=== PATIENT | female | born 1945 | race Caucasian/White ===

== ENCOUNTER 2022-04-14 17:01 | Emergency (ER) | payer MEDICARE, SELFPAY ==
--- NOTE | ~2022-04-14 | CT_ITS ---
EXAMINATION: CT abdomen pelvis w con DATE: 04/14/2022 19:42 INDICATION: abdominal pain TECHNIQUE: Computed tomography (CT) of the abdomen and pelvis was performed with 100 mL Omnipaque-300 intravenous contrast. Automated exposure control and iterative reconstruction technique were employe d. The dose-length product was 592.21 mGy-cm. COMPARISON: None FINDINGS: Lower thorax: Mild peripheral interstitial/senescent changes and bibasilar atelectasis. Fatty infiltr ation of the intra-atrial septum. Liver: Granulomas calcifications. Biliary/Gallbladder: Cholelithiasis without CT evidence of cholecystitis. No bile duct dilation. Pancreas: No mass or duct dilation. Spleen: Normal. Adrenals:Bilateral adrenal adenomas. Kidneys: Bilateral cortical thinning and scarring. Bilateral perinephric stranding. Right renal cysts and numerous bilateral hypodensities that are too small to characterize but also likely represent cy sts. No hydronephrosis or nephrolithiasis. GI tract: Distal esophageal and gastric wall edema. No small or large bowel dilation. Extensive diver ticulosis, without evidence of diverticulitis. Loss of colonic haustrations in the transverse colon, also possibly in the descending and sigmoid obscured by the diverticuli. Normal appendix. Mesentery/Peritoneum: No ascites, mass, or free air. Retroperitoneum: No mass. Minimal infrarenal aneurysmal dilation. Atherosclerotic abdominal aortic an d arterial calcifications. Pelvis: Pelvic organs are within normal limits. Soft Tissues: Soft tissues and body wall unremarkable. Bones: No acute osseous finding. IMPRESSION: Possible esophagitis/gastritis. No other acute abdominopelvic process detected. Chronic changes in th e colon possibly related to inflammatory bowel disease. Other chronic and incidental findings describ ed above. Reviewed, dictated and finalized at location K. IMPRESSION: Possible esophagitis/gastritis. No other acute abdominopelvic process detected. Chronic changes in the colon possibly related to inflammatory bowel disease. O ther chronic and incidental findings described above.
--- NOTE | ~2022-04-14 | XR_ITS ---
EXAMINATION: XR chest 1V portable Exam Date/Time: 04/14/2022 18:40 CDT CLINICAL HISTORY: abdominal pain/shortness of breath Comparison: None available. RESULT: Lines, tubes, and devices: None. Lungs and pleura: Senescent changes, otherwise clear. Cardiomediastinal silhouette: Unremarkable cardiomediastinal silhouette. Other: No acute osseous or upper abdominal finding. IMPRESSION: No acute cardiopulmonary process Reviewed, dictated and finalized at location K.
[2022-04-14 17:25] VITALS: BP 162/83; PULSE 86; RESP 20; TEMP 36.7; O2SAT 94
--- NOTE | 2022-04-14 17:38 | ECG_ITS ---
Measurements Intervals Supply Rate: 78 P: [place]: 0 QRS: 41 QRSD: 84 T: 34 QT: 395 QTc: 451 Interpretive Statements SINUS RHYTHM VENTRICULAR PREMATURE COMPLEXES INCOMPLETE RIGHT BUNDLE BRANCH BLOCK LOW QRS VOLTAGE IN PRECORDIAL LEADS BORDERLINE ST-T WAVE ABNORMALITY- INFERIOR LEADS BASELINE ARTIFACT- I, II, III, AVR, AVL, AVF BORDERLINE ECG Electronically Signed On 04-14-2022 20:45:23 CDT by Tucker Perez D.O.
[2022-04-14 18:01] LABS: Basophils Absolute Auto 0.02 K/mm3 (0.00-0.10); Basophils Percent Auto 0.2 % (0.0-1.0); Hematocrit 41.2 % (35.0-42.0); Hemoglobin 13.6 g/dL (11.7-13.8); Immature Granulocyte Absolute 0.05 K/mm3 (0.00-0.00); Immature Granulocyte Percent A 0.4 % (0.0-0.0); Lymphocytes Absolute Auto 0.86 K/mm3 (1.10-4.50); Mean Corpuscular Hemoglobin 31.6 pg (27.0-31.0); Mean Corpuscular Volume 95.8 fL (78.0-102.0); Monocytes Absolute Auto 0.81 K/mm3 (0.10-0.90); Monocytes Percent Auto 6.6 % (2.0-11.0); Neutrophils Absolute Auto 10.6 K/mm3 (1.7-7.2); Neutrophils Percent Auto 85.8 % (50.0-70.0); Platelet Count Result 292 K/mm3 (150-420); Red Cell Distribution Width 13.8 % (11.6-14.4); White Blood Count 12.3 K/mm3 (4.8-10.8)
[2022-04-14] MEDS: SODIUM CHLORIDE 0.9% IV 1,000 ML 999 ML IV CONT (18:05)
[2022-04-14] MEDS: PANTOPRAZOLE SODIUM IV 40 MG VIAL IV PUSH (18:05)
[2022-04-14] MEDS: ONDANSETRON INJ 4 MG/2 ML VIAL IV PUSH (18:05)
[2022-04-14 18:14] LABS: Partial Thromboplastin Time 31.9 SEC (23.90-30.70); Prothrombin Time 11.1 Seconds (9.50-12.10)
[2022-04-14 18:20] LABS: Lactic Acid Reflex 1.5 mmol/L (0.4-2.0)
[2022-04-14 18:23] LABS: Alanine Aminotransferase 8 U/L (14-59); Albumin Level 3.6 g/dL (3.4-5.0); Alkaline Phosphatase 76 U/L (46-116); Anion Gap 12 mmol/L (8-16); Aspartate Amino Transferase 18 U/L (15-37); Bilirubin,Total 0.5 mg/dL (0.00-1.00); Blood Urea Nitrogen 26 mg/dL (7-18); Calcium 9.3 mg/dL (8.5-10.1); Carbon Dioxide 27 mmol/L (21-32); Chloride 98 mmol/L (98-108); Estimated CRCL calculation 25 ml/min; Estimated Glomerular Filt Rate 29; Glucose 161 mg/dL (70-99); Lipase 172 U/L (73-393); Osmolality Calculated 291 mOsm/kg (285-295); Sodium 137 mmol/L (136-145); Thyroid Stimulating Hormone 2.71 uIU/mL (0.36-3.74); Total Protein 8.1 g/dL (6.4-8.2); Troponin I 14.9 ng/L (0.00-60.4)
[2022-04-14 18:24] LABS: CRP 2.4 mg/dL (0.0-0.9)
--- NOTE | 2022-04-14 18:46 | ED.ABDPAIN ---
HPI - Abdominal Pain General Chief Complaint: Nausea/Vomiting/Diarrhea Stated Complaint: vomiting, diarrhea, dizziness Source: patient and family Mode of arrival: wheelchair History of Present Illness HPI narrative: this is a 76-year-old female with a history of diabetes hypothyroidism that presents with her daughter with abdominal pain left upper quadrant and epigastric area for the last day with nausea vomiting and episodes of diarrhea no fever chills no shortness of breath no chest pain no dysuria, the patient denies flank pain. MD elicited complaint: abdominal pain Onset (ago): day(s) Pain Consistency: constant Location: epigastric Severity: moderate Quality: aching Radiation: epigastric Exacerbating factors: vomiting Associated symptoms: nausea, vomiting and diarrhea Related Data Home Medications Medication Instructions Recorded Confirmed allopurinol 50 mg PO DAILY 04/14/22 04/14/22 cholecalciferol (vitamin D3) 50 mcg PO DAILY 04/14/22 04/14/22 [Vitamin D3] levothyroxine 50 mcg PO DAILY 04/14/22 04/14/22 magnesium oxide 400 mg PO DAILY 04/14/22 04/14/22 memantine 5 mg PO DAILY 04/14/22 04/14/22 omega-3 fatty acids [[place] 3 Fish 2,000 mg PO DAILY 04/14/22 04/14/22 Oil Concentrate] pravastatin 40 mg PO DAILY 04/14/22 04/14/22 Allergies Allergy/AdvReac Type Severity Reaction Status Date / Time lisinopril Allergy Cough Verified 04/14/22 18:46 nifedipine Allergy Unknown Verified 04/14/22 18:04 Review of Systems Review of Systems: All systems reviewed & are unremarkable except as noted in HPI and below PMFSH Past Medical History Medical History Diabetes mellitus Hypothyroidism (acquired) Exam Const: General: no acute distress and alert Orientation/consciousness: patient oriented x3 HENMT: Head: normal to inspection Eyes: Conjunctivae: conjunctivae normal Pupils: Equal, round and reactive pupils present Neck: Neck: normal visual inspection Chest: Chest palpation & inspection: normal inspection of the chest Resp: Effort & Inspection: normal respiratory effort Cardio: Rate: regular rate Rhythm: regular rhythm GI: GI Palp: Yes Soft to palpation and Yes Tenderness to palpation present (GI) Percussion: Yes normal to percussion : General: Yes no CVA tenderness Urinary Catheter: Urinary Catheter: patent and draining Skin: General skin exam: normal color Rashes: no rashes Neuro: General: patient oriented x3 Extrem: General: normal to inspection and no pedal edema Psych: Mental Status: mental status grossly normal Affect: normal affect Course Course Emergency Course: labs reviewed with patient, patient had chest x-ray performed and EKG at shows occasional PVC, informed patient and family that white count was mildly elevated and has some a diminished GFR, received IV fluids and will recheck GFR to obtain a CT scan of the abdomen pelvis. Patient also received IV Protonix, Zofran and IV fluids. CT scan reviewed with patient and family which shows gastritis and advised follow-up with her primary care doctor as soon as possible for further evaluation and treatment. Vital Signs Vital signs: Vital Signs Temperature 36.7 C 04/14/22 17:25 Pulse Rate 86 04/14/22 17:25 Respiratory Rate 20 04/14/22 17:25 Blood Pressure 162/83 H 04/14/22 17:25 Pulse Oximetry 94 04/14/22 17:25 Temperature 36.7 C 04/14/22 17:25 Pulse Rate 86 04/14/22 17:25 Respiratory Rate 20 04/14/22 17:25 Blood Pressure 162/83 H 04/14/22 17:25 Pulse Oximetry 94 04/14/22 17:25 MDM - Abdominal Pain Lab Data Result diagrams: 04/14/22 17:55 04/14/22 17:55 Labs: Lab Results 04/14/22 04/14/22 04/14/22 Range/Units 17:55 17:55 17:55 WBC 12.3 H (4.8-10.8) K/mm3 RBC 4.30 (4.20-5.40) M/mm3 Hgb 13.6 (11.7-13.8) g/dL Hct 41.2 (35.0-42.0) % MCV 95.8 (78.0-102.0) fL MCH 31.6 H
[2022-04-14 19:10] LABS: Alanine Aminotransferase 8 U/L (14-59); Albumin Level 3.4 g/dL (3.4-5.0); Alkaline Phosphatase 72 U/L (46-116); Anion Gap 10 mmol/L (8-16); Aspartate Amino Transferase 15 U/L (15-37); Bilirubin,Total 0.5 mg/dL (0.00-1.00); Blood Urea Nitrogen 24 mg/dL (7-18); Calcium 8.8 mg/dL (8.5-10.1); Carbon Dioxide 27 mmol/L (21-32); Chloride 101 mmol/L (98-108); Estimated CRCL calculation 26 ml/min; Estimated Glomerular Filt Rate 32; Glucose 145 mg/dL (70-99); Osmolality Calculated 293 mOsm/kg (285-295); Potassium 3.8 mmol/L (3.5-5.1); Sodium 138 mmol/L (136-145); Total Protein 7.7 g/dL (6.4-8.2)
[2022-04-14 19:32] LABS: Appearance Urine Clear (Clear); Bilirubin Urine Negative (Negative); Color Urine Light Yellow (Yellow); Glucose Urine UA Negative (Negative); Ketones Urine Negative (Negative); Leukocyte Esterase Ur Negative (Negative); Nitrate Urine Negative (Negative); Protein Urine 1+ (Negative); Specific Grav Ur 1.015 (1.010-1.020); Urobilinogen Urine 0.2 mg/dL (0.2-1.0); pH Urine 7.5 (5.0-8.0)
[2022-04-14 19:37] LABS: Add Urine Microscopic? YES; Blood Urine Trace-lysed (Negative); Squamous Epithelial Cell Urine Occasional /hpf (Few)
[2022-04-14 20:09] VITALS: BP 142/62; PULSE 88; RESP 18; O2SAT 96
--- NOTE | 2022-05-11 08:39 | PC.NURSE ---
04/14/221929 IVF COMPLETED PT CLAUDE WELL
== END 2022-04-14 20:44 | disposition home or self-care (01) ==
PROVIDERS: Emergency Provider Emergency Medicine
DX: K52.9 Noninfective gastroenteritis and colitis, unspecified (principal); R42 Dizziness and giddiness; E11.9 Type 2 diabetes mellitus without complications; E03.9 Hypothyroidism, unspecified
CPT/HCPCS: 36415; 71045; 74177; 80053; 81001; 83605; 83690; 84443; 84484; 85025; 85610; 85730; 86140; 93005; 96361; 96374; 96375; 99284; C9113; J2405; J7030; Q9967